=== PATIENT | female | born 1980 | race Caucasian/White ===

== ENCOUNTER → 2017-10-22 | Outpatient (CLI) | payer OTHER ==
[2016-09-30 15:30] VITALS: BP 108/68
[~2017-10-22] MED LIST: CIPR500T PO
--- NOTE | 2017-10-22 10:07 | RAD ---
Complete abdominal ultrasound 10/22/2017 Indication: Abdominal pain Comparison study: None Discussion: Ultrasound evaluation of the abdomen was performed. Static images are submitted to PACS. Partially visualized portions of the pancreas are normal in appearance. Visualized aorta and IVC are normal in appearance. The liver is normal in size measuring 15.6 cm longitudinally. Liver is normal in echotexture. No focal hepatic lesions are identified. No intrahepatic biliary dilatation is seen. Portal venous flows in the normal direction. The gallbladder demonstrates no evidence of wall thickening, stones, or sludge. No pericholecystic fluid is identified. The common bile duct is normal in diameter 4 mm. Right kidney is normal in appearance measuring 10.4 cm in length. The left kidney is normal in appearance measuring 10.3 cm in length. The spleen is partially visualized but normal in size measuring 8.5 cm in length. Impression: Normal abdominal ultrasound.
== END | disposition home or self-care (01) ==
LOC: US 09:01
PROVIDERS: ATTEND Family Medicine
DX: R10.9 Unspecified abdominal pain (principal)
CPT/HCPCS: 76700

== ENCOUNTER 2019-01-30 13:58 | Emergency (ER) | payer OTHER ==
[~2019-01-30] VITALS: Ht 157.5 cm; Wt 47.6 kg
[2019-01-30] MEDS ORDERED: IV NORMAL SALINE 1000ML BAG 1,000 ML IV ONE (14:15)
[2019-01-30 14:33] LABS: BASO # 0.1 x10^3/uL (0.0-0.2); BASO % 1 % (0-3); EOS # 0.1 x10^3/uL (0.0-0.7); EOS % 1 % (0-3); HEMATOCRIT 48.7 % (36.0-47.0); HEMOGLOBIN 16.4 g/dL (12.0-15.5); LYMPH % 19 % (24-48); MEAN CORPUSCULAR HEMOGLOBIN 30 pg (25-35); MEAN CORPUSCULAR HGB CONC 34 g/dL (31-37); MEAN CORPUSCULAR VOLUME 90 fL (79-100); MONO # 0.5 x10^3/uL (0.0-1.1); MONO % 5 % (0-9); NEUT % 75 % (31-73); PLATELET COUNT 269 x10^3/uL (140-400); RED BLOOD COUNT 5.42 x10^6/uL (3.50-5.40); RED CELL DISTRIBUTION WIDTH 13.5 % (11.5-14.5); WHITE BLOOD COUNT 10.7 x10^3/uL (4.0-11.0)
--- NOTE | 2019-01-30 14:47 | RAD ---
Portable chest, 01/30/2019: HISTORY: Palpitations Comparison is made to a study from 09/30/2016. The heart size is normal. No pulmonary infiltrate is seen. There is no evidence of pleural fluid. IMPRESSION: No acute cardiopulmonary abnormality is detected. Electronically signed by: Shawn Gorman MD (01/30/2019 2:45 PM) [facility]
[2019-01-30 14:50] LABS: CALCIUM 9.9 mg/dL (8.5-10.1); CREATININE 0.8 mg/dL (0.6-1.0); GFR 81.2; POTASSIUM 3.7 mmol/L (3.5-5.1)
[2019-01-30 14:57] LABS: ALBUMIN 4.7 g/dL (3.4-5.0); ALBUMIN/GLOBULIN RATIO 1.3 (1.0-1.7); TOTAL BILIRUBIN 0.9 mg/dL (0.2-1.0); TOTAL PROTEIN 8.2 g/dL (6.4-8.2)
[2019-01-30 15:04] LABS: BILIRUBIN,URINE NEGATIVE (NEG); CLARITY,URINE CLEAR; COLOR,URINE YELLOW; NITRITE,URINE NEGATIVE (NEG); PROTEIN,URINE NEGATIVE (NEG-TRACE); UROBILINOGEN,URINE 0.2 mg/dL (0.2 mg/dL)
[2019-01-30 15:10] LABS: BARBITURATES NEG (NEG); BENZODIAZEPINES NEG (NEG); CANNABINOIDS POS (NEG); COCAINE NEG (NEG); METHADONE NEG (NEG); OPIATES NEG (NEG); PHENCYCLIDINE NEG (NEG)
[2019-01-30 15:15] LABS: AMPHETAMINE/METHAMPHETAMINE NEG (NEG)
[2019-01-30 15:17] LABS: AMORPHOUS SEDIMENT,UR PRESENT /HPF; BACTERIA,URINE FEW /HPF (0-FEW); SQUAMOUS EPITHELIAL CELL,UR OCC /LPF
--- NOTE | 2019-01-30 15:17 | EKG ---
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
[2019-01-30 15:36] VITALS: BP 125/76
--- NOTE | 2019-01-30 16:25 | PHYS DOC ---
Past Medical History Past Medical History: Anxiety Past Surgical History: Tubal ligation Alcohol Use: None Drug Use: None Adult General Chief Complaint Chief Complaint: Palpitations HPI HPI Patient is a 38 year old female with history of supraventricular tachycardia, anxiety, who presents to the ED today complaining of her heart racing. Patient states she had a whole pot of coffee, [address] pepper and smoked today. She states she started feeling her heart was racing. Patient denies any chest pain or shortness of breath. Review of Systems Review of Systems Constitutional: Denies fever or chills [] Eyes: Denies change in visual acuity, redness, or eye pain [] HENT: Denies nasal congestion or sore throat [] Respiratory: Denies cough or shortness of breath [] Cardiovascular: Reports tachycardia GI: Denies abdominal pain, nausea, vomiting, bloody stools or diarrhea [] : Denies dysuria or hematuria [] Musculoskeletal: Denies back pain or joint pain [] Integument: Denies rash or skin lesions [] Neurologic: Denies headache, focal weakness or sensory changes [] All other systems were reviewed and found to be within normal limits, except as documented in this note. Current Medications Current Medications Current Medications Medications (Trade) Dose Ordered Sig/Manohar Start Time Stop Time Status Last Admin Dose Admin Sodium Chloride 1,000 ml @ 1,000 mls/hr 1X ONCE 01/30/19 14:15 01/30/19 15:14 DC 01/30/19 14:48 1,000 MLS/HR Allergies Allergies Allergies Coded Allergies Type Severity Reaction Last Updated Verified No Known Drug Allergies 11/05/15 No Physical Exam Physical Exam Constitutional: Well developed, well nourished, no acute distress, non-toxic appearance. [] HENT: Normocephalic, atraumatic, bilateral external ears normal, oropharynx moist, no oral exudates, nose normal. [] Eyes: PERRLA, EOMI, conjunctiva normal, no discharge. [] Neck: Normal range of motion, no tenderness, supple, no stridor. [] Cardiovascular: Tachycardic. Lungs & Thorax: Bilateral breath sounds clear to auscultation [] Abdomen: Bowel sounds normal, soft, no tenderness, no masses, no pulsatile masses. [] Skin: Warm, dry, no erythema, no rash. [] Back: No tenderness, no CVA tenderness. [] Extremities: No tenderness, no cyanosis, no clubbing, ROM intact, no edema. [] Neurologic: Alert and oriented X 3, normal motor function, normal sensory function, no focal deficits noted. [] Psychologic: Affect normal, judgement normal, mood normal. [] Current Patient Data Vital Signs Vital Signs Date Time Temp Pulse Resp B/P (MAP) Pulse Ox O2 Delivery O2 Flow Rate FiO2 01/30/19 15:36 92 18 125/76 (92) 100 Room Air 01/30/19 14:13 98.4 98.4 Lab Values Laboratory Tests Test 01/30/19 14:20 01/30/19 14:50 White Blood Count 10.7 x10^3/uL (4.0-11.0) Red Blood Count 5.42 x10^6/uL (3.50-5.40) H Hemoglobin 16.4 g/dL (12.0-15.5) H Hematocrit 48.7 % (36.0-47.0) H Mean Corpuscular Volume 90 fL (79-100) Mean Corpuscular Hemoglobin 30 pg (25-35) Mean Corpuscular Hemoglobin Concent 34 g/dL (31-37) Red Cell Distribution Width 13.5 % (11.5-14.5) Platelet Count 269 x10^3/uL (140-400) Neutrophils (%) (Auto) 75 % (31-73) H Lymphocytes (%) (Auto) 19 % (24-48) L Monocytes (%) (Auto) 5 % (0-9) Eosinophils (%) (Auto) 1 % (0-3) Basophils (%) (Auto) 1 % (0-3) Neutrophils # (Auto) 8.0 x10^3uL (1.8-7.7) H Lymphocytes # (Auto) 2.0 x10^3/uL (1.0-4.8) Monocytes # (Auto) 0.5 x10^3/uL (0.0-1.1) Eosinophils # (Auto) 0.1 x10^3/uL (0.0-0.7) Basophils # (Auto) 0.1 x10^3/uL (0.0-0.2) Sodium Level 138 mmol/L (136-145) Potassium Level 3.7 mmol/L (3.5-5.1) Chloride Level 98 mmol/L (98-107) Carbon Dioxide Level 27 mmol/L (21-32) Anion Gap 13 (6-14) Blood Urea Nitrogen 8 mg/dL (7-20) Creatinine 0.8 mg/dL (0.6-1.0) Estimated GFR (Cockcroft-Gault) 81.2 BUN/Creatinine Ratio 10 (6-20) Glucose Level 126 mg/dL (70-99) H Calcium Level 9.9 mg/dL (8.5-10.1) Magnesium Level 2.0 mg/dL (1.8-2.4) Total Bilirubin 0.9 mg/dL (0.2-1.0) Aspartate Amino Transferase (AST) 17 U/L (15-37) Alanine Aminotransferase (ALT) 17 U/L (14-59) Alkaline Phosphatase 60 U/L (46-116) Creatine Kinase 97 U/L (26-192) Creatine Kinase MB (Mass) 0.9 ng/mL (0.0-3.6) Creatine Kinase MB Relative Index 0.9 % (0-4) Troponin I Quantitative < 0.017 ng/mL (0.000-0.055) CL-Bwq-C-Type Natriuretic Peptide 120 pg/mL (0-124) Total Protein 8.2 g/dL (6.4-8.2) Albumin 4.7 g/dL (3.4-5.0) Albumin/Globulin Ratio 1.3 (1.0-1.7) Lipase 72 U/L (73-393) L Thyroid Stimulating Hormone (TSH) 1.053 uIU/mL (0.358-3.74) Ethyl Alcohol Level < 10 mg/dL (0-10) Urine Color Yellow Urine Clarity Clear Urine pH 6.0 Urine Specific [place] 1.010 Urine Protein Negative mg/dL (NEG-TRACE) Urine Glucose (UA) Negative mg/dL (NEG) Urine Ketones (Stick) Negative mg/dL (NEG) Urine Blood Small (NEG) Urine Nitrite Negative (NEG) Urine Bilirubin Negative (NEG) Urine Urobilinogen Dipstick 0.2 mg/dL (0.2 mg/dL) Urine Leukocyte Esterase Trace (NEG) Urine RBC 1-2 /HPF (0-2) Urine WBC 1-4 /HPF (0-4) Urine Squamous Epithelial Cells Occ /LPF Urine Amorphous Sediment Present /HPF Urine Bacteria Few /HPF (0-FEW) Urine Opiates Screen Neg (NEG) Urine Methadone Screen Neg (NEG) Urine Barbiturates Neg (NEG) Urine Phencyclidine Screen Neg (NEG) Urine Amphetamine/Methamphetamine Neg (NEG) Urine Benzodiazepines Screen Neg (NEG) Urine Cocaine Screen Neg (NEG) Urine Cannabinoids Screen Pos (NEG) Urine Ethyl Alcohol Neg (NEG) Laboratory Tests 01/30/19 14:20 Laboratory Tests 01/30/19 14:20 EKG EKG [] Radiology/Procedures Radiology/Procedures [] Course & Med Decision Making Course & Med Decision Making Pertinent Labs and Imaging studies reviewed. (See chart for details) This is a 38-year-old female patient presenting to the ED today to be evaluated for the tachycardia, patient states she had one pot of coffee, 1, [address] Gonzalez and smoked before her symptoms started. Ekg on arrival to the ED shows sinus tachycardia with a heart rate of 104. Chest x-ray, labs are negative for any acute findings. Noted for marijuana use. Patient was also given IV fluids. I went to evaluate patient after the fluids. Heart rate 78 days. She states she is feeling better and is back to her baseline. She was discharged. She was instructed to avoid taking caffeinated drinks. I also recommended she consider smoking cessation. Provided fairing worker for follow-up as an outpatient. Dragon Disclaimer Dragon Disclaimer This electronic medical record was generated, in whole or in part, using a voice recognition dictation system. Departure Departure Impression: Primary Impression: Palpitations Additional Impression: Smoking addiction Disposition: 01 HOME, SELF-CARE Condition: STABLE Referrals: DANA WINSLOW MD (PCP) follow up next week JITENDRA VILLALTA MD follow up next week Patient Instructions: Nonspecific Tachycardia, Smoking Cessation Additional Instructions: You were evaluated in the emergency room for tachycardia. We highly recommend you consider avoiding caffeinated drinks. Consider smoking cessation. We provided you a fairing worker, ensure you follow-up with them in the course of next week. Come back to the ED at any point symptoms worsen. Problem Qualifiers ARANZA HOWARD RATNA Jan 30, 2019 16:25
== END 2019-01-30 16:35 | disposition home or self-care (01) ==
LOC: ER 13:58
DX: R00.2 Palpitations (principal); F17.200 Nicotine dependence, unspecified, uncomplicated; R00.0 Tachycardia, unspecified; F41.9 Anxiety disorder, unspecified
CPT/HCPCS: 36415; 71045; 80053; 80307; 81001; 82553; 83690; 83735; 83880; 84443; 84484; 85025; 87086; 93005; 99284; G0480; J7030

== ENCOUNTER 2020-12-04 13:38 | Emergency (ER) | payer SELFPAY ==
[~2020-12-04] VITALS: Ht 157.5 cm; Wt 48.6 kg
[~2020-12-04 13:38] MED LIST changes: -CIPR500T PO; +CIPR500T2 PO; +METR500T PO
[2020-12-04 14:00] LABS: BILIRUBIN,URINE SMALL (NEG); CLARITY,URINE CLEAR; COLOR,URINE AMBER; NITRITE,URINE NEGATIVE (NEG); PROTEIN,URINE 30 mg/dL (NEG-TRACE)
[2020-12-04 14:08] LABS: BACTERIA,URINE 0 /HPF (0-FEW); TRICHOMONAS,URINE PRESENT
[2020-12-04 14:11] LABS: U PREG PATIENT NEGATIVE (NEG)
--- NOTE | 2020-12-04 14:22 | PHYS DOC ---
Past Medical History Past Medical History: Anxiety Past Surgical History: Tubal ligation Smoking Status: Current Every Day Smoker Alcohol Use: Occasionally Drug Use: Marijuana General Adult EDM: Chief Complaint: VAGINAL BLEEDING HPI: HPI: 40-year-old female past medical history significant for anxiety and tobacco dependence, presents to the ED with complaints of irregular vaginal bleeding with associated, pelvic cramping "feels like a regular period." Patient reports she had an STD check 2 weeks ago bleeding vaginal for 3 days. States bleeding stopped for 1 day, she had sexual intercourse and then started bleeding vaginally again but mate fourth flow than her typical menses. No pelvic exam was performed, she only provided urine and was told "everything was normal," was not prescribed abx. States rapid HIV test was negative. Is requesting a test for syphilis. Former meth smoker/poor dentition. [place] referred her to the ED for blood-borne STI testing. Patient has no routine primary care physician to follow-up with. No history of blood transfusions or anemia. Review of Systems: Review of Systems: Constitutional: Denies fever or chills or flulike symptoms, generalized malaise or fatigue Eyes: Denies change in visual acuity. [] HENT: Denies nasal congestion or sore throat. [] Respiratory: Denies cough or shortness of breath. [] Cardiovascular: Denies chest pain or edema. [] GI: Denies abdominal pain, nausea, vomiting, bloody stools or diarrhea. [] : Denies dysuria, hematuria, flank pain Musculoskeletal: Denies back pain or joint pain. [] Integument: Denies rash or crepitus Neurologic: Denies headache, focal weakness or sensory changes. [] Endocrine: Denies polyuria or polydipsia. [] Lymphatic: Denies swollen glands. [] Psychiatric: Denies depression or anxiety. [] Heart Score: Risk Factors: Risk Factors: DM, Current or recent (<one month) smoker, HTN, HLP, family history of CAD, obesity. Risk Scores: Score 0 - 3: 2.5% MACE over next 6 weeks - Discharge Home Score 4 - 6: 20.3% MACE over next 6 weeks - Admit for Clinical Observation Score 7 - 10: 72.7% MACE over next 6 weeks - Early Invasive Strategies Allergies: Allergies: Allergies Coded Allergies Type Severity Reaction Last Updated Verified No Known Drug Allergies 11/05/15 No Physical Exam: PE: Constitutional: Well developed, well nourished, no acute distress, non-toxic appearance. HENT: Normocephalic, atraumatic, teeth 1 through 16 with meth mouth/black decay Eyes: EOMI, conjunctiva normal, no discharge. Neck: Normal range of motion, supple, Cardiovascular: S1/2 present, regular rhythm Lungs & Thorax: Speaking in full sentences, bilateral equal chest rise, no tachypnea or increased work of breathing Abdomen: soft, no tenderness, Skin: Warm, dry, no erythema, no rash. [] Back: No tenderness, no CVA tenderness. [] Extremities: No tenderness, no cyanosis, no edema Neurologic: Alert and oriented X 3, normal motor function, normal sensory function, no focal deficits noted. [] Psychologic: Affect normal, judgement normal, mood normal. [] Pelvic: Chaperoned by RN, external genitalia normal, thick yellow/green discharge w/scant blood, unable to view cervix given length of speculum even with transabdominal pressure/suprapubic-very posterior cervix (pt has been told this), suspect friable and erythematous given bleeding, surprisingly, pt to lerated exam well w/no distress Current Patient Data: Labs: Laboratory Tests Test 12/04/20 13:30 Urine Collection Type Unknown Urine Color [place] Urine Clarity Clear Urine pH 6.0 (<5.0-8.0) Urine Specific [place] 1.025 (1.000-1.030) Urine Protein 30 mg/dL (NEG-TRACE) Urine Glucose (UA) Negative mg/dL (NEG) Urine Ketones (Stick) Negative mg/dL (NEG) Urine Blood Moderate (NEG) Urine Nitrite Negative (NEG) Urine Bilirubin Small (NEG) Urine Urobilinogen Dipstick 1.0 mg/dL (0.2 mg/dL) Urine Leukocyte Esterase Small (NEG) Urine RBC 6-10 /HPF (0-2) Urine WBC 5-10 /HPF (0-4) Urine Squamous Epithelial Cells Mod /LPF Urine Bacteria 0 /HPF (0-FEW) Urine Mucus Marked /LPF Urine Trichomonas Present Urine Test Negative (NEG) Vital Signs: Vital Signs Date Time Temp Pulse Resp B/P (MAP) Pulse Ox O2 Delivery O2 Flow Rate FiO2 12/04/20 13:52 98.4 83 16 133/90 (104) 96 Room Air 98.4 EKG: EKG: [] Radiology/Procedures: Radiology/Procedures: [] Course & Med Decision Making: Course & Med Decision Making Pertinent Labs and Imaging studies reviewed. (See chart for details) Concern for trichomoniasis urethritis and vaginalis-given scant vaginal bleeding likely 2/2 friable cervix, will tx for PID, abx x14 days. Labs w/no anemia. Wet prep w/BV. Recommend flagyl, doxy and probiotic w/lactobacillus x 14 days. Will discharge home with strict ED return precautions were given for flulike symptoms, fever, chills, worsening pain, flank pain, nausea or vomiting (pyelonephritis vs sepsis instructions). Encouraged urgent outpatient follow-up with PMD and CHANNEL MARKETING COORDINATOR. Life-threatening processes were considered but are low suspicion at this time, given history, physical exam and ED workup. Pt was educated on all prescription medications and adverse effects. All patient's questions were answered and pt was stable at time of discharge. Life/limb-threatening differential includes but is not limited to, ectopic , septic , infection (endometritis, sti/pid, cystitis, pyelonephritis, Simone's gangrene or necrotizing fasciitis, abscess), ovarian torsion, ruptured hemorrhagic ovarian cyst, endometriosis, ureterolithiasis, thrombophlebitis, hemorrhage/DIC, organ prolapse, abdominal aortic aneurysm, mesenteric ischemia, neoplasm, bowel obstruction or surgical abdomen. I spoken with the patient and her caregivers. I explained the patient's condition, diagnoses and treatment plan based on the information available to me at this time. I have answered the patient and her caregiver's questions and addressed any concerns. The patient and her caregivers have a good understanding of patient's diagnosis, condition and treatment plan as can be expected at this point. Vital signs have been stable. Patient's condition is stable and appropriate for discharge from the emergency department. Patient will pursue further outpatient evaluation with primary care physician or other designated or consulting physician as outlined in the discharge instructions. The patient and/or caregivers are agreeable to this plan of care and follow-up instructions have been explained in detail. The patient and/or caregivers have received these instructions in written form and have expressed an understanding of the discharge instructions. The patient and/or caregivers are aware that any significant change of condition or worsening of symptoms should prompt immediate return to this or the closest emergency department or call to 911. Manuel Disclaimer: Manuel Disclaimer: This electronic medical record was generated, in whole or in part, using a voice recognition dictation system. Departure Departure Impression: Primary Impression: PID (acute pelvic inflammatory disease) Additional Impressions: Trichomonas vaginalis (TV) infection Trichomonal urethritis Bacterial vaginosis Disposition: 01 DC HOME SELF CARE/HOMELESS Condition: STABLE Referrals: DANA WINSLOW MD (PCP) PROBIOTIC WITH LACTOBACILLUS DAILY [id number] repeat urine study in 10 days Patient Instructions: Bacterial Vaginosis, Pelvic Inflammatory Disease, Sexually Transmitted Disease, Trichomoniasis Additional Instructions: FOLLOW UP WITH CHANNEL MARKETING COORDINATOR: [facility] Address: [address] [place] [address], [address] [address] EMERGENCY DEPARTMENT GENERAL DISCHARGE INSTRUCTIONS Thank you for coming to [facility] Emergency Department (ED) today and trusting us with you care. We trust that you had a positive experience in our Emergency Department. If you wish to speak to the department management, you may call the Director at [phone]. YOUR FOLLOW UP INSTRUCTIONS ARE FOLLOWS: 1. Do you have a private Doctor? If you do not have a private doctor, please ask for a resource list of physicians or clinics that may be able to assist you with follow up care. 2. The Emergency Physicain has interpreted your x-rays. The X-Ray specialist will also review them. If there is a change in the findings, you will be notified in 48 hours when at all possible. 3. A lab test or culture has been done, your results will be reviewed and you will be notified if you need a change in treatment. ADDITIONAL INSTRUCTIONS AND INFORMATION: 1. Your care today has been supervised by a physician who is specially trained in emergency care. Many problems require more than one evaluation for a complete diagnosis and treatment. We recommend that you schedule your follow up appointment as recommended to ensure complete treatment of you illness or injury. If you are unable to obtain follow up care and continue to have a problem, or if your condition worsens, we recommend that you return to the ED. 2. We are not able to safely determine your condition over the phone nor are we able to give sound medical advice over the phone. For these safety reasons, if you call for medical advice we will ask you to come to the ED for further evaluation. 3. If you have any questions regarding these discharge instructions please call the ED at [phone]. SAFETY INFORMATION: In the interest of safety, wellness, and injury prevention; we encourage you to wear your sealbelt, if you smoke; quite smoking, and we encourage family to use a protective helmet for bicycling and other sporting events that present an increased risk for head injury. IF YOUR SYMPTOMS WORSEN OR NEW SYMPTOMS DEVELOP, OR YOU HAVE CONCERNS ABOUT YOUR CONDITION; OR IF YOUR CONDITION WORSENS WHILE YOU ARE WAITING FOR YOUR FOLLOW UP APPOINTMENT; EITHER CONTACT YOUR PRIMARY CARE DOCTOR, THE PHYSICIAN WHOSE NAME AND NUMBER YOU WERE GIVEN, OR RETURN TO THE ED IMMEDIATELY. Scripts Metronidazole (FLAGYL) 500 Mg Tablet 1 TAB PO BID for 14 Days, #28 TAB Prov: JAIMEE BRYAN DO 12/04/20 Doxycycline Hyclate (DOXYCYCLINE HYCLATE) 100 Mg Capsule 1 CAP PO BID for 14 Days, #28 CAP Prov: JAIMEE BRYAN DO 12/04/20 JAIMEE BRYAN DO Dec 04, 2020 14:22
[2020-12-04] MEDS ORDERED: cefTRIAXone IM 500 MG VIAL. IM ONE (14:30)
[2020-12-04 14:58] LABS: BASO # 0.1 x10^3/uL (0.0-0.2); BASO % 1 % (0-3); EOS % 0 % (0-3); HEMATOCRIT 41.4 % (36.0-47.0); HEMOGLOBIN 14.3 g/dL (12.0-15.5); LYMPH # 1.5 x10^3/uL (1.0-4.8); LYMPH % 16 % (24-48); MEAN CORPUSCULAR HEMOGLOBIN 31 pg (25-35); MEAN CORPUSCULAR HGB CONC 35 g/dL (31-37); MEAN CORPUSCULAR VOLUME 91 fL (79-100); MONO # 0.4 x10^3/uL (0.0-1.1); MONO % 5 % (0-9); NEUT # 7.2 x10^3/uL (1.8-7.7); NEUT % 78 % (31-73); PLATELET COUNT 293 x10^3/uL (140-400); RED BLOOD COUNT 4.57 x10^6/uL (3.50-5.40); RED CELL DISTRIBUTION WIDTH 13.7 % (11.5-14.5); WHITE BLOOD COUNT 9.3 x10^3/uL (4.0-11.0)
[2020-12-04] MEDS ORDERED: METR500T PO (14:59)
[2020-12-04] MEDS ORDERED: DOXY100C2 PO (14:59)
[2020-12-04 15:05] VITALS: BP 127/82
[2020-12-04 15:18] LABS: CALCIUM 8.9 mg/dL (8.5-10.1); CREATININE 0.7 mg/dL (0.6-1.0); GFR 93.6; POTASSIUM 3.9 mmol/L (3.5-5.1)
[2020-12-04 15:24] LABS: ALBUMIN/GLOBULIN RATIO 1.2 (1.0-1.7); TOTAL BILIRUBIN 0.3 mg/dL (0.2-1.0); TOTAL PROTEIN 7.3 g/dL (6.4-8.2)
[2020-12-06 19:14] LABS: GC PROBE Negative (Negative)
== END 2020-12-04 16:06 | disposition home or self-care (01) ==
LOC: ER 13:38
DX: N73.0 Acute parametritis and pelvic cellulitis (principal); A59.01 Trichomonal vulvovaginitis; A59.03 Trichomonal cystitis and urethritis; N76.0 Acute vaginitis; B96.89 Other specified bacterial agents as the cause of diseases classified elsewhere; F17.200 Nicotine dependence, unspecified, uncomplicated; F41.9 Anxiety disorder, unspecified; Z98.51 Tubal ligation status
CPT/HCPCS: 36415; 80053; 81001; 81025; 84702; 85025; 87086; 87491; 87591; 96372; 99284; J0696; Q0111

== ENCOUNTER 2021-03-22 19:58 | Emergency (ER) | payer SELFPAY ==
[~2021-03-22] VITALS: Ht 157.5 cm; Wt 50.0 kg
[~2021-03-22 19:58] MED LIST changes: +DOXY100C2 PO
[2021-03-22 20:05] VITALS: BP 131/75
[2021-03-22] MEDS ORDERED: NAPROXEN 500 MG TABLET PO STA (20:26)
[2021-03-22] MEDS ORDERED: HYDROcodone/APAP 5/325MG 1 TAB TABLET PO ONE (20:30)
--- NOTE | 2021-03-22 20:43 | PHYS DOC ---
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 Patient denies any fever or trismus. She states she has history of gum disease and cannot see a dentist because of finances. (ARANZA HOWARD HOUSEHOLD APPLIANCES SALESPERSON) Review of Systems: Review of Systems: Constitutional: Denies fever or chills. [] HENT: Reports dental pain. Denies nasal congestion or sore throat. [] Musculoskeletal: Denies back pain or joint pain. [] Integument: Denies rash. [] Neurologic: Denies headache, focal weakness or sensory changes. [] Psychiatric: Denies depression or anxiety. [] (ARANZA HOWARD Farrah SEGUNDO) Heart Score: C/O Chest Pain: N/A Risk Factors: Risk Factors: DM, Current or recent (<one month) smoker, HTN, HLP, family history of CAD, obesity. Risk Scores: Score 0 - 3: 2.5% MACE over next 6 weeks - Discharge Home Score 4 - 6: 20.3% MACE over next 6 weeks - Admit for Clinical Observation Score 7 - 10: 72.7% MACE over next 6 weeks - Early Invasive Strategies (ARANZA HOWARD Farrah SEGUNDO) C/O Chest Pain: N/A (VIVIAN DIEGO DO) Current Medications: Current Medications Medications (Trade) Dose Ordered Sig/Manohar Start Time Stop Time Status Last Admin Dose Admin Acetaminophen/ Hydrocodone Bitart (Lortab 5/325) 1 tab 1X ONCE 03/22/21 20:30 03/22/21 20:31 DC Naproxen (Naprosyn) 500 mg 1X STAT 03/22/21 20:26 03/22/21 20:29 DC (SOUMYAKAVINARANZA Hodges HOUSEHOLD APPLIANCES SALESPERSON) Allergies: Allergies: Allergies Coded Allergies Type Severity Reaction Last Updated Verified No Known Drug Allergies 11/05/15 No (ONELARANZA Hodges APRN) Physical Exam: PE: Constitutional: Well developed, well nourished, no acute distress, non-toxic appearance. [] HENT: Normocephalic, atraumatic, bilateral external ears normal, oropharynx moist, no oral exudates, nose normal. [] Right lower molar appears broken and decayed. Missing a couple teeth. Gum erythema noted, no abscess. Abdomen: Bowel sounds normal, soft, no tenderness, no masses, no pulsatile masses. [] Skin: Warm, dry, no erythema, no rash. [] Back: No tenderness, no CVA tenderness. [] Extremities: No tenderness, no cyanosis, no clubbing, ROM intact, no edema. [] Neurologic: Alert and oriented X 3, normal motor function, normal sensory function, no focal deficits noted. [] Psychologic: Restless, thrashing around (ARANZA HOWARD APRN) EKG: EKG: [] (ARANZA HOWARD APRN) Radiology/Procedures: Radiology/Procedures: [] (ARANZA HOWARD APRN) Course & Med Decision Making: Course & Med Decision Making Pertinent Labs and Imaging studies reviewed. (See chart for details) This is a 40-year-old female patient presented to the ED today with dental pain. Discharged with amoxicillin and tramadol for pain. Follow-up with a dentist (ARANZA HOWARD APRN) Course & Med Decision Making The chart was reviewed. I did not see the patient. The MLP evaluated and treated the patient independently. I was available for consult. (VIVIAN DIEGO DO) Manuel Disclaimer: Manuel Disclaimer: This electronic medical record was generated, in whole or in part, using a voice recognition dictation system. (ARANZA HOWARD APRN) Departure Departure Impression: Primary Impression: Dentalgia Additional Impression: Dental caries Disposition: HOME / SELF CARE / HOMELESS Condition: STABLE Referrals: NO PCP (PCP) follow up with a dentist as soon as you can Patient Instructions: Dental Pain, [id number] Additional Instructions: You were seen for dental pain. Please follow-up with a dentist as soon as you can. Take the prescribed antibiotics until completed Scripts Tramadol Hcl (TRAMADOL HCL) 50 Mg Tablet 50 MG PO Q6HRS PRN for PAIN, #20 TAB Prov: ARANZA HOWARD APRN 03/22/21 Amoxicillin (AMOXICILLIN) 500 Mg Tablet 1 TAB PO BID, #20 TAB Prov: ARANZA HOWARD APRN 03/22/21 ARANZA HOWARD APRN March 22, 2021 20:43 VIVIAN DIEGO DO March 23, 2021 18:06
[2021-03-22] MEDS ORDERED: AMOX500T PO (20:46)
[2021-03-22] MEDS ORDERED: TRAM50TA PO (20:46)
== END 2021-03-22 21:06 | disposition home or self-care (01) ==
LOC: ER 19:58
DX: K08.89 Other specified disorders of teeth and supporting structures (principal); K02.9 Dental caries, unspecified; F17.200 Nicotine dependence, unspecified, uncomplicated
CPT/HCPCS: 99283